=== PATIENT | male | born 1990 | race Caucasian/White ===

== ENCOUNTER 2019-12-20 10:32 | Emergency (ER) | payer OTHER ==
[~2019-12-20] VITALS: Ht 185.4 cm; Wt 108.9 kg
[~2019-12-20 10:32] MED LIST: BACTRIM DS TAB1 EACH PO; KEFLEX500 MG PO; MOTRIN800 MG PO; NORCO 5-325 TA1 EACH PO; OMEPRAZOLE20 MG PO; TUMS300 MG PO; VITAMIN D250000 UNIT PO
== END 2019-12-20 12:52 | disposition home or self-care (01) ==
LOC: ED 10:32
DX: S20.211A Contusion of right front wall of thorax, initial encounter (principal); S30.0XXA Contusion of lower back and pelvis, initial encounter; F17.200 Nicotine dependence, unspecified, uncomplicated; Z88.8 Allergy status to other drugs, medicaments and biological substances; W22.8XXA Striking against or struck by other objects, initial encounter
CPT/HCPCS: 71260; 74177; 80048; 85025; 99284-25; Q9967